=== PATIENT | female | born 1940 | race Caucasian/White ===

== ENCOUNTER 2016-06-26 14:08 | Observation (INO) ==
--- NOTE | 2016-06-26 14:28 | Emergency Department Note ---
Disposition Clinical Impression: Right radial fracture, Hyperglycemia, Recurrent falls Disposition: Admitted As Inpatient Condition: Good General Adult HPI - General Chief complaint: ED Fall Stated complaint: fall, head + L arm injury Time Seen by Provider: 06/26/16 14:24 Source: patient - History of Present Illness Pain Scale: 8 - Related Data Home Medications Medication Instructions Recorded Confirmed Aspirin [Lo-Dose Aspirin EC] 81 mg PO DAILY 06/26/16 06/26/16 Atorvastatin [Lipitor] 40 mg PO DAILY 06/26/16 06/26/16 Calcium Carbonate/Vitamin D3 1 tab PO DAILY 06/26/16 06/26/16 [Calcium 500-Vit D3 600 Tablet] Furosemide [Lasix] 40 mg PO BID 06/26/16 06/26/16 Insulin Glargine,Hum.rec.anlog 20 unit SQ HS 06/26/16 06/26/16 [Lantus Solostar] Insulin NPH Hum/Reg Insulin Hm 20 unit SQ TIDWM 06/26/16 06/26/16 [Novolin 70-30 100 Unit/ml Vial] Levothyroxine Sodium 25 mcg PO DAILY 06/26/16 06/26/16 SitaGLIPtin [Januvia] 100 mg PO DAILY 06/26/16 06/26/16 metFORMIN [Glucophage] 1,000 mg PO BID 06/26/16 06/26/16 Allergies Allergy/AdvReac Type Severity Reaction Status Date / Time Sulfa (Sulfonamide Allergy Hives Verified 06/26/16 17:41 Antibiotics) Past Medical History - Past Medical History Medical history: Reports: diabetes, hypertension Psychiatric history: Reports: anxiety - Social History Smoking Status: Never smoker Alcohol use: Reports: none Drug use: Reports: none Physical Exam - General General appearance: alert, in no apparent distress Course Vital Signs Temperature 97.4 F L 06/26/16 14:17 Pulse Rate 91 06/26/16 14:17 Respiratory Rate 16 06/26/16 14:17 Blood Pressure 150/83 06/26/16 14:17 O2 Sat by Pulse Oximetry 92 06/26/16 14:17 Temperature 97.4 F L 06/26/16 14:17 Pulse Rate 91 06/26/16 15:19 Respiratory Rate 16 06/26/16 15:19 Blood Pressure 150/83 06/26/16 15:19 O2 Sat by Pulse Oximetry 92 06/26/16 15:22 Oxygen Delivery Oxygen Delivery Room Air Medical Decision Making - Lab Data Result diagrams: 06/26/16 15:48 06/26/16 15:48 Lab Results 06/26/16 06/26/16 06/26/16 Range/Units 15:22 15:48 15:48 WBC 9.0 (4.3-11.1) K/mcL RBC 4.86 (3.82-4.97) M/mcL Hgb 15.5 H (11.5-15.4) g/dL Hct 44.9 (35.3-44.9) % MCV 92.4 (83.0-100.0) fL MCH 31.9 (28.0-33.3) pg MCHC 34.5 (31.6-35.5) g/dL RDW 11.9 (11.5-14.5) % Plt Count 196 (140-400) K/mcL MPV 11.9 (9.4-12.4) fL Immature Gran % 0.6 (0-4) % Seg Neutrophils % 78.6 % Lymphocytes % 12.7 % Monocytes % 6.8 % Eosinophils % 1.0 % Basophils % 0.3 % Neutrophils # 7.1 (1.6-8.9) K/mcL Lymphocytes # 1.1 (0.6-4.6) K/mcL Monocytes # 0.6 (0.0-1.3) K/mcL Eosinophils # 0.1 (0.0-0.6) K/mcL Basophils # 0.0 (0.0-0.2) K/mcL Sodium 131 L (136-145) mEq/L Potassium 4.2 (3.5-4.5) mEq/L Chloride 97 L (98-109) mEq/L Carbon Dioxide 20 (19-29) mEq/L BUN 26 H (7-20) mg/dL Creatinine 1.05 (0.57-1.11) mg/dL Est GFR ( Amer) > 60 (> 60) Est GFR (Non-Af Amer) 51 L (> 60) BUN/Creatinine Ratio 25 (6-26) Glucose 692 H* (70-99) mg/dL Calculated Osmolality 310 H (280-300) Calcium 9.0 (8.6-10.8) mg/dL Troponin I (0-0.03) ng/mL Beta-Hydroxybutyric Acd 1.81 H (0.02-0.27) mmol/L Urine Color Yellow (Yellow) Urine Clarity Clear (Clear) Urine pH 6.5 (5.0-8.0) pH Units Ur Specific Valentine > 1.030 H (1.010-1.025) Urine Protein Negative (Neg-Trace) mg/dL Urine Glucose (UA) >=1000 H (Normal) mg/dL Urine Ketones 15 H (Negative) mg/dL Urine Blood Trace H (Negative) Urine Nitrite Negative (Negative) Urine Bilirubin Negative (Negative) Urine Urobilinogen Normal (Normal) mg/dL Ur Leukocyte Esterase Negative (Negative) Urine Microscopic RBC 0-3 (0-3) per hpf Urine Microscopic WBC 0-3 (0-3) per hpf Ur Squamous Epith Cells Moderate H (None-Few) per lpf Urine Bacteria None Seen (None-Few) per hpf Hyaline Casts None Seen (None-Few) per lpf 06/26/16 Range/Units 15:48 WBC (4.3-11.1) K/mcL RBC (3.82-4.97) M/mcL Hgb (11.5-15.4) g/dL Hct (35.3-44.9) % MCV (83.0-100.0) fL MCH (28.0-33.3) pg MCHC (31.6-35.5) g/dL RDW (11.5-14.5) % Plt Count (140-400) K/mcL MPV (9.4-12.4) fL Immature Gran % (0-4) % Seg Neutrophils % % Lymphocytes % % Monocytes % % Eosinophils % % Basophils % % Neutrophils # (1.6-8.9) K/mcL Lymphocytes # (0.6-4.6) K/mcL Monocytes # (0.0-1.3) K/mcL Eosinophils # (0.0-0.6) K/mcL Basophils # (0.0-0.2) K/mcL Sodium (136-145) mEq/L Potassium (3.5-4.5) mEq/L Chloride (98-109) mEq/L Carbon Dioxide (19-29) mEq/L BUN (7-20) mg/dL Creatinine (0.57-1.11) mg/dL Est GFR ( Amer) (> 60) Est GFR (Non-Af Amer) (> 60) BUN/Creatinine Ratio (6-26) Glucose (70-99) mg/dL Calculated Osmolality (280-300) Calcium (8.6-10.8) mg/dL Troponin I 0.01 (0-0.03) ng/mL Beta-Hydroxybutyric Acd (0.02-0.27) mmol/L Urine Color (Yellow) Urine Clarity (Clear) Urine pH (5.0-8.0) pH Units Ur Specific Valentine (1.010-1.025) Urine Protein (Neg-Trace) mg/dL Urine Glucose (UA) (Normal) mg/dL Urine Ketones (Negative) mg/dL Urine Blood (Negative) Urine Nitrite (Negative) Urine Bilirubin (Negative) Urine Urobilinogen (Normal) mg/dL Ur Leukocyte Esterase (Negative) Urine Microscopic RBC (0-3) per hpf Urine Microscopic WBC (0-3) per hpf Ur Squamous Epith Cells (None-Few) per lpf Urine Bacteria (None-Few) per hpf Hyaline Casts (None-Few) per lpf Attestation Statement - Attestation Attestation: I examined this patient and my medical decision-making was reviewed with the [employer] PROFESSOR/PA/Advanced Practice Nurse/Resident Physician. I agree with the documented findings, disposition and treatment plan as described except to the extent set forth below. Face to face time provided Patient sustained a mechanical fall yesterday and then a second fall to which she is amnestic to events. She complains of back pain, right upper extremity pain, headache. She has dried blood to her nose. Ecchymosis to her right wrist. States she does not take blood thinners 16:56: Custom before right wrist was placed by the patient career advisor. No postplacement neurovascular exam performed
--- NOTE | 2016-06-26 14:54 | Emergency Department Note ---
Disposition Clinical Impression: Hyperglycemia, Recurrent falls Right radial fracture Qualifiers: Encounter type: initial encounter Radius location: distal Fracture type: closed Fracture morphology: unspecified fracture morphology Qualified Code(s): S52.501A - Unspecified fracture of the lower end of right radius, initial encounter for closed fracture Disposition: Admitted As Inpatient Condition: Good Referrals: Yeimy Escudero MD [Primary Care Provider] - Forms: ED Satisfaction Letter Fall HPI - General Chief Complaint: ED Fall Stated Complaint: fall, head + L arm injury Time Seen by Provider: 06/26/16 14:24 Source: patient Nursing Notes Reviewed: Yes Vital Signs Reviewed: Yes - History of Present Illness HPI Narrative: 75-year-old female with a history of insulin-dependent diabetes presents to the emergency department after a fall that occurred yesterday. She was pulling out the hose, it got caught pulling her to the ground. She states she landed on her right wrist, hit her nose on the ground. She did not lose consciousness and she takes no anticoagulants. She reports right wrist bruising and swelling. She had an epistaxis that stopped on its own. She complains of some nose pain, forehead pain, wrist pain and low back pain. She states her back is sore but not extremely painful. She denies any numbness or weakness in the extremities. She reports multiple mechanical falls in the previous months because "my legs feel rubbery." She reports a history of poorly controlled diabetes with an A1c of 12. She denies any vertigo, visual changes, numbness in the extremities - Related Data Allergies Allergy/AdvReac Type Severity Reaction Status Date / Time Sulfa (Sulfonamide Allergy Anxiety Verified 06/26/16 14:21 Antibiotics) All systems ED: reviewed and negative except as stated. Constitutional: Denies: fever Eyes: Denies: vision change Cardiovascular: Denies: chest pain, dyspnea on exertion Respiratory: Denies: cough, dyspnea Gastrointestinal: Denies: abdominal pain, nausea, vomiting Musculoskeletal: Reports: back pain (Low back only). Denies: neck pain Neurological: Reports: headache. Denies: weakness, numbness, confusion, abnormal gait Fall PMH - Past Medical History Medical history: Reports: diabetes, hypertension Psychiatric history: Reports: anxiety - Social History Smoking Status: Never smoker Alcohol use: Reports: none Drug use: Reports: none Physical Exam General: Well-appearing female, resting comfortably in bed, alert and oriented 3 Cardiovascular: Regular rate and rhythm. S1, S2. No murmurs, rubs or gallops. Respiratory: Breath sounds clear bilaterally. No wheezing, rales or rhonchi. No resp distress Chest: No rib tenderness or chest discomfort Abdomen: Soft, nontender. No guarding, rebound or rigidity. No bruising or signs of injury Eyes: Conjunctiva clear, no bruising around the eyes HENT: She has a small amount of ecchymosis over the bridge of the nose. No crepitus. She has some dried blood in the nares but no active bleeding. No posterior bleeding. Nasopharynx is unremarkable. No midline cervical tenderness, pain with range of motion Back: No midline thoracic or lumbar pain. No paraspinal tenderness. No bruising Neuro: No facial asymmetry 5/5 upper and lower extremity strength throughout. Sensation is symmetric and intact bilaterally including the saddle area Musculoskeletal: She has diffuse ecchymosis around the right wrist and dorsal aspect of the hand with some mild swelling. No break in the skin or laceration. No other joint swelling or signs of trauma. No shoulder, clavicular or chest tenderness Neuro: She is able to flex and extend her fingers without any weakness. Sensation is intact and symmetric Vascular: Strong and symmetric radial pulses bilaterally with normal distal cap refill, color and temperature Skin: No lesions. No diaphoresis. Normal turgor. Normal color Psych: Appropriate - General General appearance: alert, in no apparent distress Course Course Narrative: Presents to the ER after recurrent falls. Today she complains about right wrist pain and headache. X-ray of the wrist shows a distal radial fracture which was splinted. Her labs reveal hyperglycemia with a glucose of nearly 700. She reports taking 20 units of long-acting insulin twice a day and 20 units of NovoLog 3 times a day. Obviously, her insulin regimen is not adequate and will need to be adjusted. Patient has an anion gap of 14 with serum ketones however, she is not acidotic. I do not think this represents DKA but borderline. She will be given IV fluids and subcutaneous insulin. Patient lives alone, has recurrent falls, is significantly hyperglycemic with a broken wrist and I feel that admission for IV fluids, insulin, home insulin adjustment and orthopedic consult is necessary - Reevaluation(s) Reevaluation #1: Discussed with the on-call hospitalist who accepts for admission, Dr Zhao Vital Signs Temperature 97.4 F L 06/26/16 14:17 Pulse Rate 91 06/26/16 14:17 Respiratory Rate 16 06/26/16 14:17 Blood Pressure 150/83 06/26/16 14:17 O2 Sat by Pulse Oximetry 92 06/26/16 14:17 Temperature 97.4 F L 06/26/16 14:17 Pulse Rate 91 06/26/16 15:19 Respiratory Rate 16 06/26/16 15:19 Blood Pressure 150/83 06/26/16 15:19 O2 Sat by Pulse Oximetry 92 06/26/16 15:22 Oxygen Delivery Oxygen Delivery Room Air Fall - Lab Data Result diagrams: 06/26/16 15:48 06/26/16 15:48 Lab Results 06/26/16 06/26/16 06/26/16 Range/Units 15:22 15:48 15:48 WBC 9.0 (4.3-11.1) K/mcL RBC 4.86 (3.82-4.97) M/mcL Hgb 15.5 H (11.5-15.4) g/dL Hct 44.9 (35.3-44.9) % MCV 92.4 (83.0-100.0) fL MCH 31.9 (28.0-33.3) pg MCHC 34.5 (31.6-35.5) g/dL RDW 11.9 (11.5-14.5) % Plt Count 196 (140-400) K/mcL MPV 11.9 (9.4-12.4) fL Immature Gran % 0.6 (0-4) % Seg Neutrophils % 78.6 % Lymphocytes % 12.7 % Monocytes % 6.8 % Eosinophils % 1.0 % Basophils % 0.3 % Neutrophils # 7.1 (1.6-8.9) K/mcL Lymphocytes # 1.1 (0.6-4.6) K/mcL Monocytes # 0.6 (0.0-1.3) K/mcL Eosinophils # 0.1 (0.0-0.6) K/mcL Basophils # 0.0 (0.0-0.2) K/mcL Sodium 131 L (136-145) mEq/L Potassium 4.2 (3.5-4.5) mEq/L Chloride 97 L (98-109) mEq/L Carbon Dioxide 20 (19-29) mEq/L BUN 26 H (7-20) mg/dL Creatinine 1.05 (0.57-1.11) mg/dL Est GFR ( Amer) > 60 (> 60) Est GFR (Non-Af Amer) 51 L (> 60) BUN/Creatinine Ratio 25 (6-26) Glucose 692 H* (70-99) mg/dL Calculated Osmolality 310 H (280-300) Calcium 9.0 (8.6-10.8) mg/dL Troponin I (0-0.03) ng/mL Beta-Hydroxybutyric Acd 1.81 H (0.02-0.27) mmol/L Urine Color Yellow (Yellow) Urine Clarity Clear (Clear) Urine pH 6.5 (5.0-8.0) pH Units Ur Specific Laura > 1.030 H (1.010-1.025) Urine Protein Negative (Neg-Trace) mg/dL Urine Glucose (UA) >=1000 H (Normal) mg/dL Urine Ketones 15 H (Negative) mg/dL Urine Blood Trace H (Negative) Urine Nitrite Negative (Negative) Urine Bilirubin Negative (Negative) Urine Urobilinogen Normal (Normal) mg/dL Ur Leukocyte Esterase Negative (Negative) Urine Microscopic RBC 0-3 (0-3) per hpf Urine Microscopic WBC 0-3 (0-3) per hpf Ur Squamous Epith Cells Moderate H (None-Few) per lpf Urine Bacteria None Seen (None-Few) per hpf Hyaline Casts None Seen (None-Few) per lpf 06/26/16 Range/Units 15:48 WBC (4.3-11.1) K/mcL RBC (3.82-4.97) M/mcL Hgb (11.5-15.4) g/dL Hct (35.3-44.9) % MCV (83.0-100.0) fL MCH (28.0-33.3) pg MCHC (31.6-35.5) g/dL RDW (11.5-14.5) % Plt Count (140-400) K/mcL MPV (9.4-12.4) fL Immature Gran % (0-4) % Seg Neutrophils % % Lymphocytes % % Monocytes % % Eosinophils % % Basophils % % Neutrophils # (1.6-8.9) K/mcL Lymphocytes # (0.6-4.6) K/mcL Monocytes # (0.0-1.3) K/mcL Eosinophils # (0.0-0.6) K/mcL Basophils # (0.0-0.2) K/mcL Sodium (136-145) mEq/L Potassium (3.5-4.5) mEq/L Chloride (98-109) mEq/L Carbon Dioxide (19-29) mEq/L BUN (7-20) mg/dL Creatinine (0.57-1.11) mg/dL Est GFR ( Amer) (> 60) Est GFR (Non-Af Amer) (> 60) BUN/Creatinine Ratio (6-26) Glucose (70-99) mg/dL Calculated Osmolality (280-300) Calcium (8.6-10.8) mg/dL Troponin I 0.01 (0-0.03) ng/mL Beta-Hydroxybutyric Acd (0.02-0.27) mmol/L Urine Color (Yellow) Urine Clarity (Clear) Urine pH (5.0-8.0) pH Units Ur Specific Laura (1.010-1.025) Urine Protein (Neg-Trace) mg/dL Urine Glucose (UA) (Normal) mg/dL Urine Ketones (Negative) mg/dL Urine Blood (Negative) Urine Nitrite (Negative) Urine Bilirubin (Negative) Urine Urobilinogen (Normal) mg/dL Ur Leukocyte Esterase (Negative) Urine Microscopic RBC (0-3) per hpf Urine Microscopic WBC (0-3) per hpf Ur Squamous Epith Cells (None-Few) per lpf Urine Bacteria (None-Few) per hpf Hyaline Casts (None-Few) per lpf - EKG Data EKG results narrative: EKG shows a sinus rhythm with a rate of 83 bpm. There is no ST elevation or depression. NE, QRS, QT interval within normal limits. Normal R progression.
[2016-06-26 15:28] LABS: Bilirubin,Urine Negative (Negative); Blood,Urine Trace (Negative); Clarity,Urine Clear (Clear); Color,Urine Yellow (Yellow); Glucose,Urine (UA) >=1000 mg/dL (Normal); Ketones,Urine 15 mg/dL (Negative); Leukocyte Esterase,Urine Negative (Negative); Nitrite,Urine Negative (Negative); PH,Urine 6.5 pH Units (5.0-8.0); Protein,Urine Negative (Neg-Trace); Specific Gravity,Urine > 1.030 (1.010-1.025); Urobilinogen,Urine Normal (Normal)
[2016-06-26 15:30] LABS: Bacteria,Urine None Seen per hpf (None-Few); Hyaline Casts,Urine None Seen per lpf (None-Few); RBC,Urine 0-3 per hpf (0-3); Squamous Epithelial Cell,Urine Moderate per lpf (None-Few); WBC,Urine 0-3 per hpf (0-3)
[2016-06-26] MEDS ORDERED: traMADol 50 MG TABLET PO ONE (15:34)
[2016-06-26 16:01] LABS: Basophils % 0.3 %; Eosinophils # 0.1 K/mcL (0.0-0.6); Hematocrit 44.9 % (35.3-44.9); Hemoglobin 15.5 g/dL (11.5-15.4); Immature Granulocytes % 0.6 % (0-4); Lymphocytes # 1.1 K/mcL (0.6-4.6); Lymphocytes % 12.7 %; Mean Corpuscular HGB Conc 34.5 g/dL (31.6-35.5); Mean Corpuscular Hemoglobin 31.9 pg (28.0-33.3); Mean Corpuscular Volume 92.4 fL (83.0-100.0); Mean Platelet Volume 11.9 fL (9.4-12.4); Monocytes # 0.6 K/mcL (0.0-1.3); Monocytes % 6.8 %; Neutrophils # 7.1 K/mcL (1.6-8.9); Platelet Count 196 K/mcL (140-400); Red Blood Count 4.86 M/mcL (3.82-4.97); Red Cell Distribution Width 11.9 % (11.5-14.5); Segmented Neutrophils % 78.6 %
[2016-06-26 16:13] LABS: BUN/Creatinine Ratio 25 (6-26); Blood Urea Nitrogen 26 mg/dL (7-20); Carbon Dioxide 20 mEq/L (19-29); Chloride 97 mEq/L (98-109); Osmolality,Calculated 310 (280-300); Potassium 4.2 mEq/L (3.5-4.5); Sodium 131 mEq/L (136-145); eGFR For African Americans > 60 (> 60); eGFR For Non-African Americans 51 (> 60)
[2016-06-26 16:16] LABS: Glucose 692 mg/dL (70-99)
[2016-06-26] MEDS ORDERED: 0.9 % Sodium Chloride 1,000 ML IVC ONE (16:16)
[2016-06-26] MEDS ORDERED: Insulin Regular, Human 100 UNIT/ML SQ ONE (16:20)
[2016-06-26 16:36] LABS: Beta-Hydroxybutyric Acid 1.81 mmol/L (0.02-0.27)
[2016-06-26] MEDS ORDERED: Ondansetron 4 MG/2 ML VIAL IVP PRN (17:03)
[2016-06-26] MEDS ORDERED: Naloxone 0.4 MG/ML INJ IVP PRN (17:03)
[2016-06-26] MEDS ORDERED: *HR* Dextrose 50 % in Water (Syg) 50 ML SYRINGE IVP PRN (17:05)
[2016-06-26] MEDS ORDERED: D5% in Water 1,000 ML IVC PRN (17:05)
[2016-06-26] MEDS ORDERED: Dextrose Gel 15 GM PO PRN ×2 (17:05)
[2016-06-26] MEDS ORDERED: 0.9 % Sodium Chloride 1,000 ML IVC SCH ×2 (17:15→23:41)
[2016-06-26] MEDS ORDERED: Magnesium Sulfate 1 GM in D5% in Water 100 ML IVPB ONE (17:38)
--- NOTE | 2016-06-26 18:49 | Internal Med History&Physical ---
Date of Encounter: 06/26/16 Time of Encounter: 18:48 Assessment and Plan (1) Right radial fracture Current visit: Yes Status: Acute 1 continue with splint have patient follow up with orthopedics 2 continue with oxycodone 3 consult PT/OT 4 fall precautions 5 social service consult- patient will be unable to administer insulin, possible home health Qualifiers: Encounter type: initial encounter Radius location: distal Fracture type: closed Fracture morphology: unspecified fracture morphology Qualified Code(s ): S52.501A - Unspecified fracture of the lower end of right radius, initial encounter for closed fracture (2) Hyperglycemia Current visit: Yes Status: Acute 1poorly controlled diabetes type 2 patient h recent radial fracture. On presentation blood sugar was 600. Serum Osmo was 310 and Anion gap is 14. Feel this will resolve with IV fluids we will check Accu-Cheks before meals at bedtime we will give high scale sliding scale insulin as well as a basal 2 diabetic diet 3 diabetic education (3) Recurrent falls Current visit: Yes Status: Acute 1 admits to recurrent falls having difficulty ambulating states that her legs are rubbery. She lives alone We will consult PT OT 2 we will consult social service liaison (4) DVT prophylaxis Current visit: Yes Status: Acute heparin subcutaneous Internal Medicine - H&P: HPI Chief complaint: R wrist pain Admitted From: Emergency Dept Plans for Post Hospital Care: Home History of present illness: Ms. Jensen is a 75 year old female past medical history of diabetes hypertension hypothyroid. According to patient yesterday she was rolling Her hose she was taken up and she lost her balance and she fell striking her face she did have a nosebleed unsure of loss of consciousness she tried to stop her fall her arm and has been experiencing pain in her right arm. She has been unable to check her blood sugars or take her insulin due to the arm pain. Prior to the follow-up patient states she has been her normal state of health. Patient does admit to frequent falls states that her legs are rubbery and she falls quickly. She presented to the ER due to right arm pain. According to ER records x-ray of forearm revealed right mild displaced intra-articular distal radial fracture. CT of head was negative for any intracranial abnormalities C- spine was negative for any fractures. Lab work did reveal a blood sugar of 692 potassium 4.2 creatinine 1.05 troponin was 0.01. Patient was given 10 units of regular insulin pain medication. She has been admitted for further workup and evaluation. Presently patient denies any chest pain or shortness of breath. She is alert oriented and appropriate follow simple commands cranial nerves 2 through 12 are intact. She does have an abrasion across bridge of nose. Lung sounds are clear heart sounds S1 and S2 with no rubs or clicks gallops murmurs noted. She does have lower extremity edema +2 bilaterally which she states is chronic. Right arm was splinted in place fingers pink and warm with brisk capillary refill EKG sinus rhythm with no ST-T wave abnormality noted. I reviewed this case with Dr. Townsend who agrees with plan. Past Med Surg Social Fam HX - Past Medical History Medical history: diabetes, hypertension Psychiatric history: anxiety - Social History Smoking Status: Never smoker Alcohol use: none Drug use: none - Additional Family History Additional family history: Patient was an orphan Internal Medicine - H&P: Meds Aspirin [Lo-Dose Aspirin EC] 81 mg PO DAILY 06/26/16 [History] Atorvastatin [Lipitor] 40 mg PO DAILY 06/26/16 [History] Calcium Carbonate/Vitamin D3 [Calcium 500-Vit D3 600 Tablet] 1 tab PO DAILY [History] Furosemide [Lasix] 40 mg PO BID 06/26/16 [History] Insulin Glargine,Hum.rec.anlog [Lantus Solostar] 20 unit SQ HS 06/26/16 [History ] Insulin NPH Hum/Reg Insulin Hm [Novolin 70-30 100 Unit/ml Vial] 20 unit SQ TIDWM 06/26/16 [History] Levothyroxine Sodium 25 mcg PO DAILY 06/26/16 [History] SitaGLIPtin [Januvia] 100 mg PO DAILY 06/26/16 [History] metFORMIN [Glucophage] 1,000 mg PO BID 06/26/16 [History] Allergies Sulfa (Sulfonamide Antibiotics) Allergy (Verified 06/26/16 17:41) Hives All Systems PM: A 10-system review of systems was performed and is negative for pertinent findings except as documented above in the HPI. - Constitutional Constitutional: falls - EENT Eyes: no change in vision, no discharge, no pain, no photophobia Nose, mouth and throat: no dysphagia, no nasal discharge, no neck pain, no sore throat - Cardiovascular Cardiovascular ROS IM: no chest pain, no diaphoresis, no dyspnea, no lightheadedness, no palpitations, no syncope - Respiratory Respiratory: no cough, no dyspnea, no wheezing, no excessive phlegm production - Gastrointestinal Gastrointestinal: no abdominal pain, no diarrhea, no hematemesis, no hematochezia, no melena, no nausea, no vomiting - Genitourinary Genitourinary: no change in urinary stream, no dysuria, no flank pain, no hematuria - Musculoskeletal Musculoskeletal ROS IM: muscle weakness - Integumentary Integumentary IM: no rash, no unusual bruising - Neurological Neurological ROS: frequent falls, numbness, weakness, no confusion, no convulsions, no focal weakness, no tingling, no tremor(s) - Hematologic/Lymphatic Hematologic/Lymphatic: no easy bruising - Constitutional Vitals: Temp Pulse Resp BP Pulse Ox 97.4 F L 91 16 150/83 92 06/26/16 14:17 06/26/16 15:19 06/26/16 15:19 06/26/16 15:19 06/26/16 15:22 General appearance: Present: A&O X 3, answers questions appropriately - Head Head exam: Present: normocephalic Additional comments: abrasions to bridge of nose - Eye Eye exam: Present: PERRL, conjuntiva pink, sclera anicteric Pupils: Present: PERRL - Neck Neck exam general surgery: Present: supple, trachea midline. Absent: lymphadenopathy - Respiratory Respiratory exam: Present: CTAB. Absent: accessory muscle use, rales, rhonchi, wheezes - Cardiovascular Cardiovascular exam: Present: RRR, +S1, +S2. Absent: diastolic murmur, gallop, rubs, systolic murmur - GI/Abdominal GI/Abdominal exam: Present: normal bowel sounds, soft, no peritoneal signs. Absent: distended, tenderness - Extremities Exam Extremities exam: Present: warm, radial pulses palpable and symetrical. Absent : calf tenderness, cyanotic, pedal edema - Neurological Exam Neurological exam: Present: CN II-XII intact, oriented X3, no focal deficits. Absent: pronater drift, facial droop, speech deficit - Skin Skin exam: Present: dry, intact Internal Med - H&P Results - Labs CBC & Chem 7: 06/26/16 15:48 06/26/16 15:48 - EKG Data EKG shows normal: sinus rhythm - Diagnostic Studies Other Images Additional comments: Chest X-Ray 06/26/16 14:49 IMPRESSION: No acute abnormality. D/ / Lionel Martinez MD / Lionel Martinez MD Interpreting Provider: Lionel Martinez MD Hand X-Ray 06/26/16 14:50 IMPRESSION: Mildly displaced intra-articular fracture of the distal right radius. D/ / Perla Benson Cha, MD / Perla Benson Cha, MD Interpreting Provider: Perla Benson Cha, MD Lumbar Spine X-Ray 06/26/16 14:50 IMPRESSION: Grade 1 anterolisthesis at L4-L5. Moderate levoconvex scoliosis. Mild diffuse degenerative disc disease. No evidence of acute fracture. D/ / 06/26/2016 15:15:40 Eduardo Sanchez MD / eberry Interpreting Provider: Eduardo Sanchez MD Wrist X-Ray 06/26/16 14:50 IMPRESSION: Mildly displaced distal scratch the mild displaced intra-articular distal radius fracture. D/ / Perla Benson Cha, MD / Perla Benson Cha, MD Interpreting Provider: Perla Benson Cha, MD Head CT 06/26/16 15:35 IMPRESSION: No acute intracranial abnormality. Mild parenchymal volume loss. Mild chronic microvascular disease. D/ / Ulisses Anthony MD / Ulisses Anthony MD Interpreting Provider: Ulisses Anthony MD
[2016-06-26] MEDS: Furosemide 40 MG TABLET PO SCH (19:57)
[2016-06-26] MEDS: *HR* OxyCODONE Immed Rel 5 MG TABLET PO PRN (19:57)
[2016-06-26] MEDS: Insulin LISPRO 300 UNITS/3 ML VIAL SQ SCH (19:57)
[2016-06-26] MEDS ORDERED: Insulin DETEMIR 100 UNIT/ML X5UNITS SQ SCH (21:00)
[2016-06-26] MEDS ORDERED: Insulin LISPRO 300 UNITS/3 ML VIAL SQ ONE (21:23)
[2016-06-26] MEDS: *HR* Heparin 5,000 UNIT/ML VIAL SQ SCH (23:50)
[2016-06-27] MEDS: Acetaminophen 325 MG TABLET PO PRN ×2 (00:01→19:35)
[2016-06-27] MEDS: *HR* OxyCODONE Immed Rel 5 MG TABLET PO PRN ×4 (03:44→23:32)
[2016-06-27 04:10] LABS: Basophils % 0.3 %; Eosinophils # 0.2 K/mcL (0.0-0.6); Eosinophils % 2.1 %; Hematocrit 39.3 % (35.3-44.9); Immature Granulocytes % 0.5 % (0-4); Lymphocytes # 1.7 K/mcL (0.6-4.6); Lymphocytes % 21.8 %; Mean Corpuscular HGB Conc 34.9 g/dL (31.6-35.5); Mean Corpuscular Hemoglobin 32.5 pg (28.0-33.3); Mean Corpuscular Volume 93.1 fL (83.0-100.0); Mean Platelet Volume 12.2 fL (9.4-12.4); Monocytes # 0.7 K/mcL (0.0-1.3); Monocytes % 8.6 %; Neutrophils # 5.1 K/mcL (1.6-8.9); Platelet Count 185 K/mcL (140-400); Red Blood Count 4.22 M/mcL (3.82-4.97); Segmented Neutrophils % 66.7 %
[2016-06-27 04:24] LABS: Hemoglobin 13.7 g/dL (11.5-15.4)
[2016-06-27 04:27] LABS: Alanine Aminotransferase 19 Units/L (0-55); Albumin 2.8 g/dL (3.5-5.0); Albumin/Globulin Ratio 0.8 (1.1-2.2); Alkaline Phosphatase 83 Units/L (38-126); BUN/Creatinine Ratio 24 (6-26); Bilirubin,Total 0.5 mg/dL (0.2-1.2); Blood Urea Nitrogen 20 mg/dL (7-20); Calcium 8.2 mg/dL (8.6-10.8); Carbon Dioxide 26 mEq/L (19-29); Chloride 103 mEq/L (98-109); Globulin 3.4 g/dL (2.4-3.5); Glucose 291 mg/dL (70-99); Osmolality,Calculated 297 (280-300); Sodium 137 mEq/L (136-145); Total Protein 6.2 g/dL (6.0-8.3); eGFR For African Americans > 60 (> 60); eGFR For Non-African Americans > 60 (> 60)
[2016-06-27 04:44] LABS: Aspartate Amino Transferase 22 Units/L (5-34)
[2016-06-27] MEDS: Levothyroxine 25 MCG TABLET PO SCH (06:07)
[2016-06-27] MEDS: Furosemide 40 MG TABLET PO SCH (07:44)
[2016-06-27] MEDS: Aspirin Enteric Coated 81 MG Tablet PO SCH (07:44)
[2016-06-27] MEDS: Cholecalciferol (D-3) 1,000 UNIT TABLET PO SCH (07:45)
[2016-06-27] MEDS: Insulin LISPRO 300 UNITS/3 ML VIAL SQ SCH ×4 (07:45→21:10)
[2016-06-27] MEDS: *HR* Heparin 5,000 UNIT/ML VIAL SQ SCH ×3 (07:45→23:32)
[2016-06-27] MEDS ORDERED: Insulin DETEMIR 100 UNIT/ML X5UNITS SQ SCH (09:00)
[2016-06-27] MEDS: Bumetanide 1 MG TABLET PO SCH ×2 (12:29→17:11)
--- NOTE | 2016-06-27 18:09 | Internal Med Progress Note ---
Date of Encounter: 06/27/16 Time of Encounter: 13:00 - Assessment and plan (1) Recurrent falls Current Visit: Yes Status: Acute Assessment and plan: Patient complains of multiple falls at home in the past few months. She states that when she is walking her legs feels like rubbery and gave up. No loss of consciousness. This admission, patient was rolling her hose when she lost her balance and fell striking her face. She tried to stop her fall with her arm. CT head showed no acute intracranial process. C-spine was unremarkable for any acute fractures. consult PT/OT (2) Right radial fracture Current Visit: Yes Status: Acute Assessment and plan: x-ray of forearm revealed right mild displaced intra-articular distal radial fracture. Orthopedics service consulted. I discussed case with Dr. Burgos, he recommence to continue conservative therapy: splint in place, pain medications. Qualifiers: Encounter type: initial encounter Radius location: distal Fracture type: closed Fracture morphology: unspecified fracture morphology Qualified Code(s ): S52.501A - Unspecified fracture of the lower end of right radius, initial encounter for closed fracture (3) Hyperglycemia Current Visit: Yes Status: Acute Assessment and plan: Poorly controlled diabetes mellitus type 2. Admission, glucose level was 600. She received IV fluids, Devaughn and insulin sliding scale with improvement. Fasting glucose this morning is 250. Change Levemir to twice a day. (4) Diabetes Current Visit: Yes Status: Acute Assessment and plan: Plan as above. Qualifiers: Diabetes mellitus type: type 2 Diabetes mellitus complication status: with hyperglycemia Diabetes mellitus medical terminologist insulin use: with skilled nursing use Qualified Code(s): E11.65 - Type 2 diabetes mellitus with hyperglycemia; Z79.4 - residential (current) use of insulin (5) Leg edema Current Visit: Yes Status: Acute Assessment and plan: Patient takes furosemide at home for history of CHF. Physical examination reveals lower extremity edema. Check echocardiogram. Start Bumex 0.5 mg twice a day. Fluid restriction. Strict I's and O's. Qualifiers: Laterality: bilateral Qualified Code(s): R60.0 - Localized edema - Subjective Interval history: patient complains of LE edema, she states that she has taken furosemide for the past 10 years and is not working anymore. her right hand pain is well controlled with meds. - Constitutional Vitals: Temp Pulse Resp BP Pulse Ox 97.9 F 80 16 127/64 93 06/27/16 16:54 06/27/16 16:54 06/27/16 16:54 06/27/16 16:54 06/27/16 16:54 General appearance: Present: cooperative, A&O X 3, pleasant, no acute distress, answers questions appropriately - Respiratory Respiratory exam: Present: CTAB - Cardiovascular Cardiovascular exam: Present: RRR - GI/Abdominal GI/Abdominal exam: Present: normal bowel sounds, soft. Absent: distended, tenderness - Extremities Exam Extremities exam: Present: pedal edema (1+ Le edema) - Back Exam Back exam: Absent: CVA tenderness (L), CVA tenderness (R) - Neurological Exam Neurological exam: Present: alert, oriented X3, no focal deficits, strengths equal and symetr throughout. Absent: facial droop, speech deficit - Skin Skin exam: Absent: rash Internal Medicine: Result - Labs CBC & Chem 7: 06/27/16 03:29 06/27/16 03:29 Labs: Short CBC 06/27/16 Range/Units 03:29 WBC 7.6 (4.3-11.1) K/mcL Hgb 13.7 D (11.5-15.4) g/dL Hct 39.3 (35.3-44.9) % Plt Count 185 (140-400) K/mcL Neutrophils # 5.1 (1.6-8.9) K/mcL BMP 06/27/16 03:29 Sodium 137 Potassium 4.0 Chloride 103 Carbon Dioxide 26 BUN 20 Creatinine 0.82 Glucose 291 H Calcium 8.2 L Liver Function 06/27/16 Range/Units 03:29 Total Bilirubin 0.5 (0.2-1.2) mg/dL AST 22 (5-34) Units/L ALT 19 (0-55) Units/L Alkaline Phosphatase 83 (38-126) Units/L Albumin 2.8 L (3.5-5.0) g/dL Consult Discharge Plan - Plan Referrals: Yeimy Escudero MD [Primary Care Provider] -
--- NOTE | 2016-06-27 18:59 | ECHO - Doppler Report ---
Echocardiogram Name: Perla Jensen Date of Study: 06/27/2016 Date: 1940 Ht: 62.0 in Medical Record#: [id number] Age: 75 Wt: 166.0 lb Gender: Female BSA: 1.77 Order #: [id number] Location: [facility] Room #: 2N02 Reading Physician: Jared Lee MD, [facility] Office Technologist: Gerri Espitia RVT Ordering Physician: Soraida Summers MD Primary Physician: Yeimy Escudero MD Indications: Syncope, falls Impressions: LVEF 55-60%. Mild left ventricular diastolic dysfunction. No significant valvular dysfunction. Left Ventricular Wall Motion: Rest Echo Findings All wall segments showed normal motion. Findings: Study Quality * Technically adequate exam. Right Ventricle * Normal right ventricular structure and function. Right Atrium * Normal right atrial size. Aortic Valve * Trileaflet aortic valve with normal function. Mitral Valve * Normal mitral valve structure and function. Interatrial Septum * No evidence of PFO by color Doppler. Aorta * Normally sized aortic root. Left Ventricle * Mild left ventricular diastolic dysfunction. * LVEF 55-60%. Tricuspid Valve * No tricuspid regurgitation. * No tricuspid stenosis. * Unable to estimate RVSP due to lack of TR jet. Pericardium * There is a trivial pericardial effusion present. Pulmonic Valve * No pulmonic regurgitation. * No pulmonic stenosis. * Pulmonic valve is not well visualized. IVC * Normal IVC dimensions and inspiratory collapse. Left Atrium * Mildly dilated left atrium. History Measurements: 2D Normal Values RVIDd: 2.70 cm <2.7 cm IVSd: 1.00 cm 0.6 - 1.0 cm LVIDd: 4.00 cm 3.7 - 5.6 cm LVPWd: 1.00 cm 0.6 - 1.1 cm LVIDs: 2.70 cm 1.5 - 3.6 cm LA: 4.10 cm 2.0 - 4.0cm %FS: 32.50 cm >25 % LA volume: 39 Mitral Valve Peak E:.55 m/sec Peak A:.84 m/sec E/A Ratio:0.7 Peak E' Lat Anand:8.48 cm/s Peak E' Med Anand:7.12 cm/s E/E' Lat Ratio:6.5 E/E' Med Ratio:7.8 Tricuspid Valve TV Regurg Peak Grad: 2.00mmHg TV Regurg Peak Anand: .62m/sec Updated by Jared Lee MD, [facility] on 06/27/2016 6:51:38 PM electronically signed on 06/27/2016 6:54:58 PM with status of Final Wall Motion Allison: 1=Normal, 2=Hypokinesis, 3=Akinesis, 4=Dyskinesis, 5=Aneurysmal, 6=Hyperkinetic, X=Not Visualized (Blank)=Missing
--- NOTE | 2016-06-27 20:30 | Electrocardiograph Report ---
[place] [id number] Test Date: 2016-06-26 Pat Name: Perla Jensen Department: 105 Room: 2N02 Gender: F Product Info Specialist: TIMOTHY : 1940 Requested By: Elia Hendrickson Order Number: [id number] Reading MD: Jared Lee MD Measurements Intervals [place] Rate: 83 P: 34 MD: 153 QRS: 1 QRSD: 87 T: 22 QT: 379 QTc: 419 Interpretive Statements SINUS RHYTHM Electronically Signed On 06-27-2016 20:28:25 EDT by Jared Lee MD
[2016-06-27] MEDS: Insulin DETEMIR 100 UNIT/ML X5UNITS SQ SCH (21:09)
[2016-06-27] MEDS ORDERED: Insulin LISPRO 300 UNITS/3 ML VIAL SQ ONE (21:23)
[2016-06-28 04:38] LABS: Prothrombin Time 10.2 Seconds (9.4-12.1)
[2016-06-28 04:40] LABS: Activated Partial Thrombo Time 33.2 Seconds (26.0-36.0)
[2016-06-28 04:50] LABS: Basophils % 0.5 %; Eosinophils # 0.2 K/mcL (0.0-0.6); Eosinophils % 2.5 %; Hematocrit 39.9 % (35.3-44.9); Hemoglobin 13.5 g/dL (11.5-15.4); Immature Granulocytes % 0.6 % (0-4); Lymphocytes # 1.7 K/mcL (0.6-4.6); Lymphocytes % 26.6 %; Mean Corpuscular HGB Conc 33.8 g/dL (31.6-35.5); Mean Corpuscular Hemoglobin 31.5 pg (28.0-33.3); Mean Platelet Volume 11.5 fL (9.4-12.4); Monocytes # 0.6 K/mcL (0.0-1.3); Monocytes % 8.8 %; Neutrophils # 3.8 K/mcL (1.6-8.9); Platelet Count 174 K/mcL (140-400); Red Blood Count 4.29 M/mcL (3.82-4.97)
[2016-06-28 04:53] LABS: BUN/Creatinine Ratio 23 (6-26); Blood Urea Nitrogen 16 mg/dL (7-20); Calcium 8.6 mg/dL (8.6-10.8); Carbon Dioxide 24 mEq/L (19-29); Chloride 106 mEq/L (98-109); Glucose 211 mg/dL (70-99); Magnesium 1.9 mg/dL (1.6-2.6); Osmolality,Calculated 297 (280-300); Phosphorous 2.6 mg/dL (2.3-4.7); Potassium 3.3 mEq/L (3.5-4.5); Sodium 140 mEq/L (136-145); eGFR For African Americans > 60 (> 60); eGFR For Non-African Americans > 60 (> 60)
[2016-06-28] MEDS: Levothyroxine 25 MCG TABLET PO SCH (06:25)
--- NOTE | 2016-06-28 08:32 | Orthopedic Consult Note ---
Date of Encounter: 06/28/16 Time of Encounter: 08:29 Assessment and Plan (1) Right radial fracture Current Visit: Yes Status: Acute Patient doing well, pain controlled with pain medication. XRAYS reviewed and discussed with the patient. No need for surgical intervention at this time. Plan for wrist immobilization for 2-4 weeks, no wrist ROM at this time. Splint was adjusted to allow for finger ROM with ELENA wrap applied. Will have thumb spica brace given to patient prior to discharge. She is to keep this brace on. Encouraging finger ROM. No lifting/pulling or pushing. OK for OT. Swelling reduction via ICE, elevation and finger mobility. Follow up in office with sports medicine in a week for cast placement. Appt to be faxed to the floor. Orthopedics signing off. Thank you for the consult. Qualifiers: Encounter type: initial encounter Radius location: distal Fracture type: closed Fracture morphology: unspecified fracture morphology Qualified Code(s ): S52.501A - Unspecified fracture of the lower end of right radius, initial encounter for closed fracture (2) Recurrent falls Current Visit: Yes Status: Acute (3) Diabetes Current Visit: Yes Status: Acute Qualifiers: Diabetes mellitus type: type 2 Diabetes mellitus complication status: with hyperglycemia Diabetes mellitus correction insulin use: with intermediate frame tender use Qualified Code(s): E11.65 - Type 2 diabetes mellitus with hyperglycemia; Z79.4 - terminal worker (current) use of insulin History of Present Illness Chief complaint: Fall HPI: Ms. Jensen is a 75 year old female, laying comfortably in bed. A&Ox3, pain controlled. Right volar splint with ELENA wrap in place to right wrist. Patient states she fell on Tuesday with her arms outstretched in extended position. She hit her face and head as well. Denies LOC. She states her pain is located along the front and back of her wrist, worse with movement of her wrist and fingers. No pain with elbow motion. Admits to worsening of her swelling. Denies N/T into digits. Pain overall controlled with pain medication. Denies history of fracture. XRAYs from 06/26/16 reviewed - mildly displaced distal radius fracture. Past Med Surg Social Fam HX - Past Medical History Medical history: diabetes, hypertension Psychiatric history: anxiety - Social History Smoking Status: Never smoker Smokeless Tobacco Status: No Alcohol use: none Drug use: none Medications and Allergies Aspirin [Lo-Dose Aspirin EC] 81 mg PO DAILY 06/26/16 [History] Atorvastatin [Lipitor] 40 mg PO DAILY 06/26/16 [History] Calcium Carbonate/Vitamin D3 [Calcium 500-Vit D3 600 Tablet] 1 tab PO DAILY [History] Furosemide [Lasix] 40 mg PO BID 06/26/16 [History] Insulin Glargine,Hum.rec.anlog [Lantus Solostar] 20 unit SQ HS 06/26/16 [History ] Insulin NPH Hum/Reg Insulin Hm [Novolin 70-30 100 Unit/ml Vial] 20 unit SQ TIDWM 06/26/16 [History] Levothyroxine Sodium 25 mcg PO DAILY 06/26/16 [History] SitaGLIPtin [Januvia] 100 mg PO DAILY 06/26/16 [History] metFORMIN [Glucophage] 1,000 mg PO BID 06/26/16 [History] Allergies Sulfa (Sulfonamide Antibiotics) Allergy (Verified 06/26/16 17:41) Hives All Systems Reviewed: A 10-system review of systems was performed and is negative for pertinent findings except as documented above in the HPI. - Constitutional Constitutional: as per HPI - Cardiovascular Cardiovascular: as per HPI - Respiratory Respiratory: as per HPI Physical Exam - Constitutional Vitals: Temp Pulse Resp BP Pulse Ox 97.6 F 75 16 119/72 89 06/28/16 04:10 06/28/16 04:10 06/28/16 04:10 06/28/16 04:10 06/28/16 04:10 - Wrist & Hand right Location of pain: dorsal wrist, volar wrist, radial wrist Wrist pain modifiers: with motion Tenderness with palpation: radial wrist, ulnar wrist, volar wrist ROM: wrist flexion: abnormal ROM: wrist extension: abnormal ROM: wrist radial deviation: abnormal ROM: wrist ulnar deviation: abnormal Finger crepitus with motion: No Strength: wrist flexion: Weak Strength: wrist extension: Weak Results - Labs Result Diagrams: 06/28/16 04:15 06/28/16 04:15 Labs: Abnormal lab results Potassium 3.3 mEq/L (3.5-4.5) L 06/28/16 04:15 Glucose 211 mg/dL (70-99) H 06/28/16 04:15 POC Glucose 350 (58-89) H 06/27/16 21:43 Albumin 2.8 g/dL (3.5-5.0) L 06/27/16 03:29 Albumin/Globulin Ratio 0.8 (1.1-2.2) L 06/27/16 03:29 Beta-Hydroxybutyric Acd 1.81 mmol/L (0.02-0.27) H 06/26/16 15:48 Ur Specific [place] > 1.030 (1.010-1.025) H 06/26/16 15:22 Urine Glucose (UA) >=1000 mg/dL (Normal) H 06/26/16 15:22 Urine Ketones 15 mg/dL (Negative) H 06/26/16 15:22 Urine Blood Trace (Negative) H 06/26/16 15:22 Ur Squamous Epith Cells Moderate per lpf (None-Few) H 06/26/16 15:22 H & H 06/28/16 Range/Units 04:15 Hgb 13.5 (11.5-15.4) g/dL Hct 39.9 (35.3-44.9) % All other labs normal. - Diagnostic results Wrist/Hand x-ray: report reviewed, image reviewed Consult Discharge Plan - Plan Referrals: Yeimy Escudero MD [Primary Care Provider] -
[2016-06-28] MEDS: *HR* OxyCODONE Immed Rel 5 MG TABLET PO PRN ×2 (08:49→19:59)
[2016-06-28] MEDS: Bumetanide 1 MG TABLET PO SCH ×2 (08:50→17:35)
[2016-06-28] MEDS: *HR* Heparin 5,000 UNIT/ML VIAL SQ SCH ×3 (08:50→23:42)
[2016-06-28] MEDS: Insulin DETEMIR 100 UNIT/ML X5UNITS SQ SCH ×2 (08:50→19:54)
[2016-06-28] MEDS: Cholecalciferol (D-3) 1,000 UNIT TABLET PO SCH (08:50)
[2016-06-28] MEDS: Aspirin Enteric Coated 81 MG Tablet PO SCH (08:50)
[2016-06-28] MEDS: Insulin LISPRO 300 UNITS/3 ML VIAL SQ SCH ×4 (08:51→19:53)
--- NOTE | 2016-06-28 17:58 | Internal Med Progress Note ---
Date of Encounter: 06/28/16 Time of Encounter: 08:30 - Assessment and plan (1) Recurrent falls Current Visit: Yes Status: Acute Assessment and plan: Patient complains of multiple falls at home in the past few months. She states that when she is walking her legs feels like rubbery and gave up. No loss of consciousness. This admission, patient was rolling her hose when she lost her balance and fell striking her face. She tried to stop her fall with her arm. CT head showed no acute intracranial process. C-spine was unremarkable for any acute fractures. SNF per PT/OT recs. awaiting placement. (2) Right radial fracture Current Visit: Yes Status: Acute Assessment and plan: x-ray of forearm revealed right mild displaced intra-articular distal radial fracture. Appreciate Orthopedic input. continue conservative management. splint to brace, pain medications. PT/OT Qualifiers: Encounter type: initial encounter Radius location: distal Fracture type: closed Fracture morphology: unspecified fracture morphology Qualified Code(s ): S52.501A - Unspecified fracture of the lower end of right radius, initial encounter for closed fracture (3) Hyperglycemia Current Visit: Yes Status: Acute Assessment and plan: Poorly controlled diabetes mellitus type 2. Admission, glucose level was 600. She received IV fluids, Devaughn and insulin sliding scale with improvement. Fasting glucose this morning is 192. increase Levemir. sliding scale insulin. diabetic diet. (4) Diabetes Current Visit: Yes Status: Acute Assessment and plan: Plan as above. Qualifiers: Diabetes mellitus type: type 2 Diabetes mellitus complication status: with hyperglycemia Diabetes mellitus prison insulin use: with extermination inspector use Qualified Code(s): E11.65 - Type 2 diabetes mellitus with hyperglycemia; Z79.4 - terminal press operator (current) use of insulin (5) Diastolic dysfunction Current Visit: Yes Status: Acute Assessment and plan: Patient takes furosemide at home for history of dHF. not in acute exacerbation. Echocardiogram shows LVEF 55-60%,, mild LV diastolic dysfunction. continue Bumex 0.5 mg twice a day. Fluid restriction. Strict I's and O's. (6) Leg edema Current Visit: Yes Status: Acute Assessment and plan: plan as above Qualifiers: Laterality: bilateral Qualified Code(s): R60.0 - Localized edema - Subjective Interval history: patient states her arm pain is well controlled with medications. - Constitutional Vitals: Temp Pulse Resp BP Pulse Ox 98.1 F 83 18 118/76 93 06/28/16 16:53 06/28/16 16:53 06/28/16 16:53 06/28/16 16:53 06/28/16 16:53 General appearance: Present: cooperative, A&O X 3, pleasant, no acute distress, answers questions appropriately - Respiratory Respiratory exam: Present: CTAB - Cardiovascular Cardiovascular exam: Present: RRR - GI/Abdominal GI/Abdominal exam: Present: normal bowel sounds, soft. Absent: distended, tenderness - Extremities Exam Extremities exam: Absent: pedal edema Additional comments: right arm in splint - Back Exam Back exam: Absent: CVA tenderness (L), CVA tenderness (R) - Neurological Exam Neurological exam: Present: alert, oriented X3. Absent: facial droop, speech deficit - Skin Skin exam: Absent: rash Internal Medicine: Result - Labs CBC & Chem 7: 06/28/16 04:15 06/28/16 04:15 Labs: Short CBC 06/28/16 Range/Units 04:15 WBC 6.3 (4.3-11.1) K/mcL Hgb 13.5 (11.5-15.4) g/dL Hct 39.9 (35.3-44.9) % Plt Count 174 (140-400) K/mcL Neutrophils # 3.8 (1.6-8.9) K/mcL BMP 06/28/16 04:15 Sodium 140 Potassium 3.3 L Chloride 106 Carbon Dioxide 24 BUN 16 Creatinine 0.70 Glucose 211 H Calcium 8.6 - ABG Interpretation ABG results: PT/INR, D-dimer PT 10.2 Seconds (9.4-12.1) 06/28/16 04:15 Consult Discharge Plan - Plan Referrals: Yeimy Escudero MD [Primary Care Provider] - (PT DOESN'T WANT TO SEE THIS DOCTOR ANYMORE) Clifford Sanchez CNP [Advanced Practice Nurse] - 07/06/16 9:00 am (PLEASE FILL OUT PACKET THAT IS BEING MAILED TO YOU AND TAKE TO YOUR APPOINTMENT. IF YOU DON 'T GET THE PACKET IN THE MAIL PLEASE SHOW UP 30 MINUTES EARLY TO FILL OUT PAPER WORK. PLEASE TAKE WITH YOU TO YOUR APPOINTMENT PICUTRE ID, INS. CARD, AND ALL MEDICATION IN THE BOTTLES. IF YOU ARE UNABLE TO MAKE YOUR APPOINTMENT PLEASE CALL 24 HOURS PRIOR TO YOUR APPOINTMENT)
[2016-06-29] MEDS: Levothyroxine 25 MCG TABLET PO SCH (06:29)
[2016-06-29 07:00] LABS: BUN/Creatinine Ratio 16 (6-26); Blood Urea Nitrogen 11 mg/dL (7-20); Calcium 9.1 mg/dL (8.6-10.8); Carbon Dioxide 28 mEq/L (19-29); Chloride 106 mEq/L (98-109); Glucose 218 mg/dL (70-99); Magnesium 1.8 mg/dL (1.6-2.6); Osmolality,Calculated 300 (280-300); Phosphorous 2.7 mg/dL (2.3-4.7); Potassium 3.5 mEq/L (3.5-4.5); Sodium 142 mEq/L (136-145); eGFR For African Americans > 60 (> 60); eGFR For Non-African Americans > 60 (> 60)
[2016-06-29 07:07] LABS: Basophils % 0.7 %; Eosinophils # 0.2 K/mcL (0.0-0.6); Eosinophils % 2.7 %; Hematocrit 43.2 % (35.3-44.9); Hemoglobin 14.9 g/dL (11.5-15.4); Immature Granulocytes % 0.7 % (0-4); Lymphocytes # 1.4 K/mcL (0.6-4.6); Lymphocytes % 25.8 %; Mean Corpuscular HGB Conc 34.5 g/dL (31.6-35.5); Mean Corpuscular Hemoglobin 32.7 pg (28.0-33.3); Mean Corpuscular Volume 94.7 fL (83.0-100.0); Mean Platelet Volume 11.8 fL (9.4-12.4); Monocytes # 0.4 K/mcL (0.0-1.3); Monocytes % 8.1 %; Neutrophils # 3.4 K/mcL (1.6-8.9); Platelet Count 191 K/mcL (140-400); Red Blood Count 4.56 M/mcL (3.82-4.97); Red Cell Distribution Width 12.2 % (11.5-14.5)
[2016-06-29] MEDS: *HR* Heparin 5,000 UNIT/ML VIAL SQ SCH ×2 (07:51→16:55)
[2016-06-29] MEDS: Insulin DETEMIR 100 UNIT/ML X5UNITS SQ SCH ×2 (07:51→20:54)
[2016-06-29] MEDS: Aspirin Enteric Coated 81 MG Tablet PO SCH (07:52)
[2016-06-29] MEDS: Insulin LISPRO 300 UNITS/3 ML VIAL SQ SCH ×5 (07:52→20:51)
[2016-06-29] MEDS: Cholecalciferol (D-3) 1,000 UNIT TABLET PO SCH (07:53)
[2016-06-29] MEDS: Bumetanide 1 MG TABLET PO SCH ×2 (07:53→16:56)
[2016-06-29] MEDS: *HR* OxyCODONE Immed Rel 5 MG TABLET PO PRN ×3 (07:54→20:56)
--- NOTE | 2016-06-29 13:19 | Internal Med Progress Note ---
Date of Encounter: 06/29/16 Time of Encounter: 11:45 - Assessment and plan (1) Right radial fracture Current Visit: Yes Status: Acute Assessment and plan: Continue physical therapy. Follow orthopedic recommendations. Supportive care. Awaiting placement to skilled rehabilitation due to recurrent falls Qualifiers: Encounter type: initial encounter Radius location: distal Fracture type: closed Fracture morphology: unspecified fracture morphology Qualified Code(s ): S52.501A - Unspecified fracture of the lower end of right radius, initial encounter for closed fracture (2) Hyperglycemia Current Visit: Yes Status: Acute Assessment and plan: Blood sugars are elevated today. We will increase insulin regimen. (3) Recurrent falls Current Visit: Yes Status: Acute Assessment and plan: Evaluated by physical therapy and recommended placement to skilled rehabilitation (4) Diabetes Current Visit: Yes Status: Acute Assessment and plan: Uncontrolled blood sugars. We will increase insulin regimen. Qualifiers: Diabetes mellitus type: type 2 Diabetes mellitus complication status: with hyperglycemia Diabetes mellitus terminal system operator insulin use: with terminal system operator use Qualified Code(s): E11.65 - Type 2 diabetes mellitus with hyperglycemia; Z79.4 - buttermaker (current) use of insulin (5) Diastolic dysfunction Current Visit: Yes Status: Acute Assessment and plan: Continue Bumex. Patient having good urine output. Negative fluid balance of 2.5 L since admission. - Subjective Interval history: Patient is feeling much better today. Her pain in the right upper extremity is much improved. Denies any new complaints at this time. Tolerating diet well. - Constitutional Vitals: Temp Pulse Resp BP Pulse Ox 98.2 F 78 18 127/74 95 06/29/16 11:00 06/29/16 11:00 06/29/16 11:00 06/29/16 11:00 06/29/16 11:00 General appearance: Present: cooperative, A&O X 3, pleasant, no acute distress, answers questions appropriately - Respiratory Respiratory exam: Present: CTAB. Absent: accessory muscle use, rales, rhonchi, wheezes - Cardiovascular Cardiovascular exam: Present: RRR, +S1, +S2. Absent: diastolic murmur, gallop, rubs, systolic murmur - Extremities Exam Extremities exam: Present: pedal edema, warm, radial pulses palpable and symetrical. Absent: calf tenderness, cyanotic Additional comments: Right wrist in brace. Good movement at wrist and interphalangeal joints - Neurological Exam Neurological exam: Present: no focal deficits. Absent: facial droop, speech deficit - Skin Skin exam: Present: dry, intact Internal Medicine: Result - Labs CBC & Chem 7: 06/29/16 06:15 06/29/16 06:15 Labs: Short CBC 06/29/16 Range/Units 06:15 WBC 5.5 (4.3-11.1) K/mcL Hgb 14.9 (11.5-15.4) g/dL Hct 43.2 (35.3-44.9) % Plt Count 191 (140-400) K/mcL Neutrophils # 3.4 (1.6-8.9) K/mcL BMP 06/29/16 06:15 Sodium 142 Potassium 3.5 Chloride 106 Carbon Dioxide 28 BUN 11 Creatinine 0.69 Glucose 218 H Calcium 9.1 - ABG Interpretation ABG results: PT/INR, D-dimer PT 10.2 Seconds (9.4-12.1) 06/28/16 04:15 Consult Discharge Plan - Plan Referrals: Ricky De La Rosa MD [Partnered Physician] - 07/02/16 8:10 am Clifford Sanchez CNP [Advanced Practice Nurse] - 07/06/16 9:00 am (PLEASE FILL OUT PACKET THAT IS BEING MAILED TO YOU AND TAKE TO YOUR APPOINTMENT. IF YOU DON 'T GET THE PACKET IN THE MAIL PLEASE SHOW UP 30 MINUTES EARLY TO FILL OUT PAPER WORK. PLEASE TAKE WITH YOU TO YOUR APPOINTMENT PICUTRE ID, INS. CARD, AND ALL MEDICATION IN THE BOTTLES. IF YOU ARE UNABLE TO MAKE YOUR APPOINTMENT PLEASE CALL 24 HOURS PRIOR TO YOUR APPOINTMENT) - Attending Attestation This document has been at least partially created by [employer] recognition technology by Dr. Brandt. Errors in grammar, wording or other phrases may exist. If errors are found after the documentation is signed, they will be addressed individually in the addendum section of this document when appropriate.
[2016-06-30] MEDS: *HR* Heparin 5,000 UNIT/ML VIAL SQ SCH ×3 (00:16→15:20)
[2016-06-30] MEDS: Levothyroxine 25 MCG TABLET PO SCH (06:00)
[2016-06-30] MEDS: *HR* OxyCODONE Immed Rel 5 MG TABLET PO PRN ×2 (06:00→12:17)
[2016-06-30] MEDS: Aspirin Enteric Coated 81 MG Tablet PO SCH (08:05)
[2016-06-30] MEDS: Cholecalciferol (D-3) 1,000 UNIT TABLET PO SCH (08:05)
[2016-06-30] MEDS: Insulin LISPRO 300 UNITS/3 ML VIAL SQ SCH ×6 (08:05→15:23)
[2016-06-30] MEDS: Bumetanide 1 MG TABLET PO SCH ×2 (08:06→15:20)
[2016-06-30] MEDS: Insulin DETEMIR 100 UNIT/ML X5UNITS SQ SCH (08:14)
--- NOTE | 2016-06-30 13:32 | Discharge Summary ---
Date of Encounter: 06/30/16 Time of Encounter: 13:15 - Discharge Diagnosis (1) Right radial fracture Priority: Primary Status: Acute Qualifiers: Encounter type: initial encounter Radius location: distal Fracture type: closed Fracture morphology: unspecified fracture morphology Qualified Code(s ): S52.501A - Unspecified fracture of the lower end of right radius, initial encounter for closed fracture (2) Hyperglycemia Priority: Secondary Status: Acute (3) Recurrent falls Priority: Secondary Status: Acute (4) Diabetes Priority: Secondary Status: Acute Qualifiers: Diabetes mellitus type: type 2 Diabetes mellitus complication status: with hyperglycemia Diabetes mellitus halfway insulin use: with halfway use Qualified Code(s): E11.65 - Type 2 diabetes mellitus with hyperglycemia; Z79.4 - intermediate teacher (current) use of insulin (5) Diastolic dysfunction Priority: Secondary Status: Acute - Discharge Medications Prescriptions: OxyCODONE Immed Rel [Roxicodone 5 MG] 5 mg PO Q6HR PRN #14 tablet PRN Reason: Moderate Pain (4-6) Home Medications: Aspirin [Lo-Dose Aspirin EC] 81 mg PO DAILY 06/26/16 [History] Atorvastatin [Lipitor] 40 mg PO DAILY 06/26/16 [History] Calcium Carbonate/Vitamin D3 [Calcium 500-Vit D3 600 Tablet] 1 tab PO DAILY [History] Furosemide [Lasix] 40 mg PO BID 06/26/16 [History] Insulin Glargine,Hum.rec.anlog [Lantus Solostar] 20 unit SQ HS 06/26/16 [History ] Insulin NPH Hum/Reg Insulin Hm [Novolin 70-30 100 Unit/ml Vial] 20 unit SQ TIDWM 06/26/16 [History] Levothyroxine Sodium 25 mcg PO DAILY 06/26/16 [History] SitaGLIPtin [Januvia] 100 mg PO DAILY 06/26/16 [History] metFORMIN [Glucophage] 1,000 mg PO BID 06/26/16 [History] DiphenhydraMINE [Benadryl] 25 mg PO Q6HR PRN #0 capsule 06/30/16 [Rx] Hydrocortisone 2.5% CREAM [Cortaid] 1 appl TP BID tube 06/30/16 [Rx] OxyCODONE Immed Rel [Roxicodone 5 MG] 5 mg PO Q6HR PRN #14 tablet 06/30/16 [Rx] Allergies/Adverse Reactions: Allergies Sulfa (Sulfonamide Antibiotics) Allergy (Verified 06/26/16 17:41) Hives Procedures/tests Complete & Pending: Procedures Performed prior 72 hours Category Date Time Status EV echocardiogram Routine Y 06/27/16 23:57 Completed Date of admission: 06/26/16 17:19 Primary care physician: Yeimy Escudero, Consults: 06/26/16 19:26 Consult to Instructional Designer [CONS] Routine Reason for SW Consult: discharge planning 06/26/16 19:33 Consult to Nutrition [CONS] Routine Comment: Consulting Provider: NUTRITION Reason for Dietary Consult: MST Score 06/27/16 08:00 Consult to Orthopedic Surgery [CONS] Routine Consulting Provider: [facility]oped[facility] Reason for Consult: Right distal Radius fracture Call Completed: Yes Discharging clinician: Richard Brandt Anticipated date of discharge: 06/30/16 - Patient Status Disposition: Transfer SNF Condition: Good Functional capacity at discharge: uses cane/walker Overall status at discharge: patient is progressing back to baseline - Discharge Instructions Follow Up With: Ricky De La Rosa MD [Partnered Physician] - 07/02/16 8:10 am Clifford Sanchez CNP [Advanced Practice Nurse] - 07/06/16 9:00 am (PLEASE FILL OUT PACKET THAT IS BEING MAILED TO YOU AND TAKE TO YOUR APPOINTMENT. IF YOU DON 'T GET THE PACKET IN THE MAIL PLEASE SHOW UP 30 MINUTES EARLY TO FILL OUT PAPER WORK. PLEASE TAKE WITH YOU TO YOUR APPOINTMENT PICUTRE ID, INS. CARD, AND ALL MEDICATION IN THE BOTTLES. IF YOU ARE UNABLE TO MAKE YOUR APPOINTMENT PLEASE CALL 24 HOURS PRIOR TO YOUR APPOINTMENT) - Diet and Activity Activity: as per physical therapy Diet: advance to your usual diet, diabetic diet, low fat, low cholesterol, low salt diet Hospital course: Ms. Jensen is a 75 year old female patient who was observed here after presenting with right radial fracture, hyperglycemia and recurrent falls at home. She was treated for diabetes insulin and orthopedics evaluated her for her right radial fracture. She was recommended conservative care and a brace was placed here. She will follow up with orthopedics for cast placement next week. She was also evaluated by physical therapy and recommended placement to skilled rehabilitation. As part of her workup for recurrent falls, she underwent echocardiogram which showed normal ejection fraction of 55-60% with mild left-ventricular diastolic dysfunction. CT scan of the head done here showed no acute intracranial abnormality. Patient has developed some dermatitis near her left elbow which will be treated with topical steroids and Benadryl as needed for itching. - Time Spent with Patient Total time spent providing and/or coordinating discharge services: Greater than 30 minutes (35 min) - Constitutional Vitals: Temp Pulse Resp BP Pulse Ox 98.3 F 83 16 107/70 93 06/30/16 10:51 06/30/16 10:51 06/30/16 10:51 06/30/16 10:51 06/30/16 10:51 General appearance: Present: cooperative, A&O X 3, pleasant, no acute distress, answers questions appropriately - Respiratory Respiratory exam: Present: CTAB. Absent: accessory muscle use, rales, rhonchi, wheezes - Cardiovascular Cardiovascular exam: Present: RRR, +S1, +S2. Absent: diastolic murmur, gallop, rubs, systolic murmur - GI/Abdominal GI/Abdominal exam: Present: normal bowel sounds, soft, no peritoneal signs. Absent: distended, tenderness - Extremities Exam Extremities exam: Present: warm, radial pulses palpable and symetrical. Absent : calf tenderness, cyanotic, pedal edema Additional comments: Right wrist and hand in brace with good range of motion at her fingers - Neurological Exam Neurological exam: Present: alert, oriented X3, no focal deficits. Absent: facial droop, speech deficit - Attending Attestation This document has been at least partially created by [employer] voice recognition technology by Dr. Brandt. Errors in grammar, wording or other phrases may exist. If errors are found after the documentation is signed, they will be addressed individually in the addendum section of this document when appropriate.
--- NOTE | 2016-06-30 13:48 | Physician Discharge Referral ---
ExtendedCare Referral Info Provider in Charge after Transfer: PCP Institutional Level of Care: Skilled - Diagnosis (1) Right radial fracture Priority: Primary Status: Acute (2) Hyperglycemia Priority: Secondary Status: Acute (3) Recurrent falls Priority: Secondary Status: Acute (4) Diabetes Priority: Secondary Status: Acute (5) Diastolic dysfunction Priority: Secondary Status: Acute Prognosis: Good Aware of Diagnosis: Patient Aware of Prognosis: Patient - Transfer Medications Prescriptions: OxyCODONE Immed Rel [Roxicodone 5 MG] 5 mg PO Q6HR PRN #14 tablet PRN Reason: Moderate Pain (4-6) Home Medications: Aspirin [Lo-Dose Aspirin EC] 81 mg PO DAILY 06/26/16 [History] Atorvastatin [Lipitor] 40 mg PO DAILY 06/26/16 [History] Calcium Carbonate/Vitamin D3 [Calcium 500-Vit D3 600 Tablet] 1 tab PO DAILY [History] Furosemide [Lasix] 40 mg PO BID 06/26/16 [History] Insulin Glargine,Hum.rec.anlog [Lantus Solostar] 20 unit SQ HS 06/26/16 [History ] Insulin NPH Hum/Reg Insulin Hm [Novolin 70-30 100 Unit/ml Vial] 20 unit SQ TIDWM 06/26/16 [History] Levothyroxine Sodium 25 mcg PO DAILY 06/26/16 [History] SitaGLIPtin [Januvia] 100 mg PO DAILY 06/26/16 [History] metFORMIN [Glucophage] 1,000 mg PO BID 06/26/16 [History] DiphenhydraMINE [Benadryl] 25 mg PO Q6HR PRN #0 capsule 06/30/16 [Rx] Hydrocortisone 2.5% CREAM [Cortaid] 1 appl TP BID tube 06/30/16 [Rx] OxyCODONE Immed Rel [Roxicodone 5 MG] 5 mg PO Q6HR PRN #14 tablet 06/30/16 [Rx] Allergies/Adverse Reactions: Allergies Sulfa (Sulfonamide Antibiotics) Allergy (Verified 06/26/16 17:41) Hives - Respiratory Orders Smoking Cessation: Smoking cessation has been advised. For more information, call the [place] Tobacco Quit Line at 7-493-UATX-NOW. - Ancillary Orders May consult with Dentist, Director Of National Sales, Air Tank Assembler PRN - Advance Directives Code Status: Full Code - Rehabiliation Orders Rehab Potential: Good Rehab Orders: Evaluation for Physical Therapy, Evaluation for Occupational Therapy - Diet Orders No Concentrated Sweets, Cardiac (and diabetic) CERTIFICATION: I certify that the transfer of the above named patient to an Extended Care Facility is necessary for the continuing treatment of the diagnosis listed. The above information is true and accurate reflection of patient's current condition. Confidential - Redisclosure prohibited without a patient's written consent.
[2016-06-30 14:56] VITALS: BP 138/82
== END 2016-06-30 19:00 ==
LOC: EMEROO 14:08 → 2NNU 14:08 → SUATTDRO 17:19 → 2NNU 18:54 → 3NENU 06-29 09:08
PROVIDERS: ADMIT Internal Medicine Sleep Medicine; ATTEND Internal Medicine